=== PATIENT | male | born 1965 | race Caucasian/White ===

== ENCOUNTER 2018-05-16 13:53 | Emergency (ER) | payer MEDICAID ==
[~2018-05-16] VITALS: Ht 175.3 cm; Wt 65.8 kg
[2018-05-16] MEDS ORDERED: LORAZEPAM 1 MG TABLET ONE (14:20)
[2018-05-16 14:21] LABS: BASOPHILS % (AUTO) 0.3 % (0.0-2.0); EOSINOPHILS % (AUTO) 0.2 % (0.0-6.0); HEMATOCRIT 43 % (39-51); HEMOGLOBIN 14.2 g/dL (13.5-17.5); LYMPHOCYTES # (AUTO) 1.1 /CMM (0.8-4.8); LYMPHOCYTES % (AUTO) 16.8 % (20.0-44.0); MEAN CORPUSCULAR HGB CONC 33 g/dl (31.0-36.0); MEAN CORPUSCULAR VOLUME 91 fL (80-96); MONOCYTES # (AUTO) 0.7 /CMM (0.1-1.30); MONOCYTES % (AUTO) 11.4 % (2.0-12.0); NEUTROPHILS # (AUTO) 4.7 /CMM (1.8-8.9); NEUTROPHILS % (AUTO) 71.3 % (43.0-81.0); PLATELET COUNT (AUTO) 307 /CMM (150-450); RED BLOOD CELL COUNT(AUTO) 4.69 MIL/uL (4.5-6.0); WHITE BLOOD COUNT (AUTO) 6.6 K/uL (4.3-11.0)
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
[2018-05-16 14:27] LABS: CALCIUM, SERUM 8.4 mg/dL (8.5-10.1); CARBON DIOXIDE 28 mmol/L (21-32); CHLORIDE 104 mmol/L (98-107); CREATININE 0.9 mg/dL (0.6-1.3); GLUCOSE 101 mg/dL (74-106); POTASSIUM 3.4 mmol/L (3.5-5.1); SODIUM SERUM 139 mmol/L (136-145); UREA NITROGEN, BLOOD 17 mg/dL (7-18)
[2018-05-16] MEDS ORDERED: OLANZAPINE 10 MG VIAL IM ONE (14:28)
[2018-05-16 14:33] LABS: ALANINE AMINOTRANSFERASE 47 U/L (12-78); ALBUMIN 3.9 g/dL (3.4-5.0); ALCOHOL, BLOOD < 3 mg/dL (0-0); ALKALINE PHOSPHATASE 99 U/L (46-116); ASPARTATE AMINOTRANSFERASE 24 U/L (15-37); BILIRUBIN,DIRECT 0.1 mg/dL (0.0-0.2); BILIRUBIN,TOTAL 0.7 mg/dL (0.2-1.0); TOTAL PROTEIN, SERUM 7.1 g/dL (6.4-8.2)
[2018-05-16 14:34] LABS: ACETAMINOPHEN 0 ug/ml (10-30); SALICYLATE 1.7 mg/dL (2.8-20.0)
[2018-05-16] MEDS: OLANZAPINE 10 MG VIAL IM ONE (14:34)
[2018-05-16] MEDS: LORAZEPAM 1 MG TABLET PO ONE (14:35)
--- NOTE | 2018-05-16 15:03 | NUR ---
URINE OBTAINED AND SENT TO LAB
[2018-05-16 15:16] LABS: BILIRUBIN,URINE Negative (NEGATIVE); BLOOD, URINE Trace-lysed Ery/uL (NEGATIVE); COLOR,URINE Yellow (YELLOW); KETONES,URINE 40 (NEGATIVE); LEUKOCYTE ESTERASE ,URINE Negative (NEGATIVE); NITRITE, URINE Negative (NEGATIVE); PROTEIN,URINE Negative (NEGATIVE); UGLUCOSE Negative (NEGATIVE); UROBILINOGEN,URINE 0.2 EU/dL (0.2)
[2018-05-16 15:19] LABS: APPEARANCE,URINE Hazy (CLEAR)
[2018-05-16 15:24] LABS: BACTERIA,URINE None seen /HPF (None Seen); MUCUS,URINE Few /LPF (None Seen); SQUAMOUS EPITHELIAL CELL,UR Few /HPF (None Seen)
--- NOTE | 2018-05-16 17:03 | NUR ---
Patient is resting comfortably in bed with eyes closed. Easily aroused. VSS
--- NOTE | 2018-05-16 19:01 | NUR ---
PT SNORING. EASILY AROUSED. VSS. NO COMPLAINTS AT THIS TIME
--- NOTE | 2018-05-16 20:40 | NUR ---
Patient discharged to home in stable condition. Written and verbal after care instructions given. Patient verbalizes understanding of instruction. ambulatory with a steady gait. DENIES SI OR HI AT THIS TIME. PT TO BE PICKED UP BY FRIEND MAREN FAGAN
[2018-05-16 20:44] VITALS: BP 140/72
== END 2018-05-16 20:44 | disposition home or self-care (01) ==
LOC: ER 13:56
DX: F15.10 Other stimulant abuse, uncomplicated (principal); Z88.8 Allergy status to other drugs, medicaments and biological substances
CPT/HCPCS: 36415; 80048-TC; 80076-TC; 80305; 81000-TC; 85025-TC; G0480; J3490